=== PATIENT | female | born 1985 ===

== ENCOUNTER 2017-08-03 07:30 | Emergency (ER) | payer SELFPAY ==
[2017-08-03 07:33] VITALS: BMI 47.7
[2017-08-03 07:35] VITALS: O2SAT 97
--- NOTE | 2017-08-03 07:50 | C.PDOC ---
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 PS DIDNT SEE POTHOLE, FELL FORWARD. +AMBUL ON SCENE. PAIN WORSE W WT BEAR, MOVEMENT. NO OTHER ASSOC SX OR INJURY EXAM MILD DIST NONTOXIC OBESE HEENT ATRAUM NECK SUPPLE EXT R KNEE HEMATOMA W MILD SWELL, NO GROSS DEFORM. AROM W REPRODUC PAIN. L KNEE : NO SWELL, AROM W REPRODUC PAIN NO DEFORM; R SHOULDER AROM W REPRODUC PAIN NO DEFORM; B/L WRIST NEG SKIN INTACT NEURO INTACT REMAINDER NEG - HPI Time Seen by Provider: 08/03/17 07:39 Chief Complaint (Nursing): Lower Extremity Problem/Injury History Per: Patient History/Exam Limitations: no limitations Past Medical History Reviewed: Historical Data, Nursing Documentation, Vital Signs Vital Signs: Last Vital Signs Temp 97.8 F 08/03/17 07:32 Pulse 92 H 08/03/17 07:32 Resp 18 08/03/17 07:32 BP 127/84 08/03/17 07:32 Pulse Ox 97 08/03/17 09:45 Family History: States: No Known Family Hx - Social History Hx Alcohol Use: No Hx Substance Use: No - Immunization History Hx Tetanus Toxoid Vaccination: No Hx Influenza Vaccination: No Hx Pneumococcal Vaccination: No Review Of Systems Constitutional: Negative for: Fever Gastrointestinal: Negative for: Vomiting Musculoskeletal: Positive for: Other (knee pain) Skin: Negative for: Rash Neurological: Negative for: Weakness, Numbness, Headache, Dizziness Physical Exam - Physical Exam Appears: Non-toxic, No Acute Distress, Other (obese) Skin: Normal Color, Warm, Dry, No Rash Head: Normacephalic Eye(s): bilateral: PERRL Nose: Normal Oral Mucosa: Moist Lips: Normal Appearing Neck: Normal ROM Cardiovascular: Rhythm Regular, No Murmur Respiratory: Normal Breath Sounds, No Accessory Muscle Use Extremity: Normal ROM, No Deformity, Other (R KNEE HEMATOMA W MILD SWELL, NO GROSS DEFORM. AROM W REPRODUC PAIN. L KNEE: NO SWELL, AROM W REPRODUC PAIN NO DEFORM; R SHOULDER AROM W REPRODUC PAIN NO DEFORM; B/L WRIST NEG) Neurological/Psych: Oriented x3, Normal Speech ED Course And Treatment O2 Sat by Pulse Oximetry: 97 (RA) Pulse Ox Interpretation: Normal - Other Rad R KNEE X-Ray: Interpreted by Me (NEG) R HIP X-Ray: Interpreted by Me (NEG) Reevaluation Time: : Reassessment Condition: Improved Disposition Counseled Patient/Family Regarding: Studies Performed, Diagnosis, Need For Followup, Rx Given - Disposition Referrals: [facility] [Outside] [facility] [Outside] Disposition: HOME/ ROUTINE Disposition Time: : Condition: IMPROVED Prescriptions: Acetaminophen [Tylenol Extra Strength] 2 tab PO Q6 #30 tablet Cyclobenzaprine [Flexeril] 10 mg PO TID #15 tab Ibuprofen [Motrin] 600 mg PO Q6 #30 tab Instructions: Contusion (DC), Knee Sprain (DC) Forms: [employer] (Kinyarwanda) Print Language: [place] - Clinical Impression Clinical Impression: Knee contusion, Shoulder sprain, Wrist sprain - Scribe Statement The provider has reviewed the documentation as recorded by the Scribe (Halina Dang) All medical record entries made by the Scribe were at my direction and personally dictated by me. I have reviewed the chart and agree that the record accurately reflects my personal performance of the history, physical exam, medical decision making, and the department course for this patient. I have also personally directed, reviewed, and agree with the discharge instructions and disposition.
--- NOTE | 2017-08-03 09:21 | RAD ---
PROCEDURE: Right Knee Radiographs. HISTORY: TRAUMA COMPARISON: None. FINDINGS: BONES: Normal. No fracture. JOINTS: Normal. No osteoarthritis. JOINT EFFUSION: None. OTHER FINDINGS: None. IMPRESSION: Normal radiographs of the right knee.
--- NOTE | 2017-08-03 09:22 | RAD ---
PROCEDURE: Right Hip Radiographs. HISTORY: TRAUMA COMPARISON: None. FINDINGS: BONES: Normal. No fracture. JOINTS: Normal. SOFT TISSUES: Normal. OTHER FINDINGS: None. IMPRESSION: Normal radiographs of right hip.
[2017-08-03 09:57] VITALS: BP 93/56; PULSE 53; RESP 14; TEMP 98
== END 2017-08-03 09:58 | disposition home or self-care (01) ==
LOC: C.ER 07:30
DX: S80.01XA Contusion of right knee, initial encounter (principal); S43.401A Unspecified sprain of right shoulder joint, initial encounter; S63.501A Unspecified sprain of right wrist, initial encounter; W01.0XXA Fall on same level from slipping, tripping and stumbling without subsequent striking against object, initial encounter
CPT/HCPCS: 73502; 73562; 96372; 99284; J1885

== ENCOUNTER 2017-08-15 08:16 | Emergency (ER) | payer OTHER ==
[2017-08-15 08:16] VITALS: BMI 47.7
[2017-08-15 08:43] VITALS: O2SAT 100
--- NOTE | 2017-08-15 10:22 | C.PDOC ---
History Of Present Illness 31 y/o female from [place] presents to ED with c/o pain to right chest burning in nature 5/10 and mild headache 3/10 "for few days". 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 Patient states she thinks symptoms worsen s/p fall 1 week ago where she landed on her hand and hit chest. At ED patient c/o pain to hands, elbows and knees secondary to fall. No other complaints at this time. Chief Complaint (Nursing): Breast Problem History Per: Patient History/Exam Limitations: no limitations Onset/Duration Of Symptoms: Days Current Symptoms Are (Timing): Still Present Past Medical History Reviewed: Historical Data, Nursing Documentation, Vital Signs Vital Signs: Last Vital Signs Temp 98.1 F 08/15/17 12:14 Pulse 62 08/15/17 12:14 Resp 18 08/15/17 12:14 BP 102/71 08/15/17 12:14 Pulse Ox 100 08/15/17 12:14 - Medical History PMH: No Chronic Diseases Other Surgeries: Breast reduction, Breast implant in 2011 Family History: States: No Known Family Hx - Social History Hx Alcohol Use: No Hx Substance Use: No - Immunization History Hx Tetanus Toxoid Vaccination: No Hx Influenza Vaccination: No Hx Pneumococcal Vaccination: No Review Of Systems Constitutional: Negative for: Fever, Chills Eyes: Negative for: Vision Change Gastrointestinal: Negative for: Abdominal Pain Musculoskeletal: Positive for: Arm Pain, Leg Pain Skin: Negative for: Rash Neurological: Positive for: Headache. Negative for: Weakness, Numbness, Dizziness Physical Exam - Physical Exam Appears: Non-toxic, No Acute Distress Skin: Warm, Dry, No Rash Head: Atraumatic, Normacephalic Eye(s): bilateral: Normal Inspection Ear(s): Bilateral: Normal Oral Mucosa: Moist Throat: Normal, No Erythema, No Exudate Neck: Normal ROM, Supple Chest: Other (Scarring around right nipple. Deep scarring to left breast below nipple. Soft non tended mass above right breast) Cardiovascular: Rhythm Regular Respiratory: Normal Breath Sounds, No Rales, No Rhonchi, No Wheezing Gastrointestinal/Abdominal: Soft, No Tenderness, No Guarding, No Rebound Neurological/Psych: Oriented x3, Normal Speech, Normal Cognition ED Course And Treatment O2 Sat by Pulse Oximetry: 100 (RA) Pulse Ox Interpretation: Normal Progress Note: Tylenol and Motrin Administered. Breast US ordered to r/o implant rupture. D/w Dr. Swanson states pt need plastic surgeon if procedure is needed. D/w radiology Dr Benavides reports no evidence of damage to Silicone implant on US, reports chest wall mass noted that appears to be chronic and requests patient to have outpatient work up. Patient d/c with instructed f.u with clinic for further work up. Disposition Counseled Patient/Family Regarding: Studies Performed, Diagnosis, Need For Followup, Rx Given - Disposition Referrals: [facility] [Outside] Disposition: HOME/ ROUTINE Disposition Time: 12:02 Condition: STABLE Additional Instructions: Follow up in clinic to work up the chest wall mass. Prescriptions: Ibuprofen [Motrin] 1 tab PO TID PRN #30 tab PRN Reason: Pain Instructions: [place] Forms: Gen Discharge Inst [place], [facility] ([place] Islander) - POA Present On Arrival: None - Clinical Impression Clinical Impression: Chest wall mass - Scribe Statement The provider has reviewed the documentation as recorded by the Scribmartina Rodriguez All medical record entries made by the Scribe were at my direction and personally dictated by me. I have reviewed the chart and agree that the record accurately reflects my personal performance of the history, physical exam, medical decision making, and the department course for this patient. I have also personally directed, reviewed, and agree with the discharge instructions and disposition.
[2017-08-15 12:15] VITALS: BP 102/71; PULSE 62; RESP 18; TEMP 98.1
--- NOTE | 2017-08-15 12:15 | US ---
PROCEDURE: Diagnostic right breast ultrasound examination HISTORY: displaced sylicone implant: Palpable right breast mass status post trauma. History of left reduction mammoplasty and right breast augmentation mammoplasty. COMPARISON: None available TECHNIQUE: Ultrasound examination was performed throughout the right breast. FINDINGS: The prosthesis appears intact. There is no evidence of prosthesis rupture or silicone leak. In the superior right breast there is a solid macro lobulated mass in the 10 o'clock axis, 6 centimeter from the nipple, measuring 4.3 x 2.5 x 2.5 centimeters. This should be further evaluated with bilateral mammography. No additional abnormality is demonstrated. IMPRESSION: Macro lobulated 4.3 centimeter mass in the 10 o'clock axis right breast. Further evaluation with bilateral mammography is advised. No evident spot prosthesis rupture. No evidence of posttraumatic hematoma. BIRADS 0 Incomplete - Need additional imaging evaluation and/or prior mammograms for comparison Recommendation: Recall for additional imaging and/or comparison with prior examination, as described above. Patient will be contacted.
== END 2017-08-15 12:14 | disposition home or self-care (01) ==
LOC: C.ER 08:16
DX: R22.2 Localized swelling, mass and lump, trunk (principal)

== ENCOUNTER 2017-09-12 09:50 | Emergency (ER) | payer OTHER ==
[2017-09-12 09:50] VITALS: BMI 47.4
[2017-09-12 10:04] VITALS: RESP 18
[2017-09-12] MEDS ORDERED: Oxycodone/Acetaminophen 5/325 mg Tab PO STA (11:05)
--- NOTE | 2017-09-12 11:17 | C.PDOC ---
History Of Present Illness 31 year old female with a Hx of right breast augmentation presents to the ER with a complaint of right breast discomfort. Patient was seen on 08/15/17 for a complaint of right breast discomfort, she had an ultrasound of the right breast which indicated that the implant had not ruptured. Patient had a mammogram done a few days ago which showed that the implant had been displaced, she presents now because she continues to have discomfort. Denies chest pain, SOB, or fever. Time Seen by Provider: 09/12/17 10:50 Chief Complaint (Nursing): Breast Problem History Per: Patient History/Exam Limitations: no limitations Onset/Duration Of Symptoms: Days Current Symptoms Are (Timing): Still Present Recent travel outside of the [place]: No Past Medical History Reviewed: Historical Data, Nursing Documentation, Vital Signs Vital Signs: Last Vital Signs Temp 98.5 F 09/12/17 12:21 Pulse 64 09/12/17 12:21 Resp 18 09/12/17 12:21 BP 102/69 09/12/17 12:21 Pulse Ox 98 09/12/17 12:21 Family History: States: Unknown Family Hx - Social History Hx Alcohol Use: No Hx Substance Use: No - Immunization History Hx Tetanus Toxoid Vaccination: No Hx Influenza Vaccination: No Hx Pneumococcal Vaccination: No Review Of Systems Constitutional: Negative for: Fever, Chills Cardiovascular: Negative for: Chest Pain, Palpitations Respiratory: Negative for: Cough, Shortness of Breath Musculoskeletal: Positive for: Other (Right breast discomfort) Physical Exam - Physical Exam Appears: Non-toxic Skin: Normal Color, Warm, Dry Head: Atraumatic, Normacephalic Eye(s): bilateral: Normal Inspection Oral Mucosa: Moist Chest: Other (Scarring around right nipple. Deep scarring to left breast below nipple. Soft mildly tender mass at right breast inner quadrant; no erythema, swelling, skin changes) Cardiovascular: Rhythm Regular Respiratory: Normal Breath Sounds, No Rales, No Rhonchi, No Wheezing Gastrointestinal/Abdominal: Soft, No Tenderness Extremity: Bilateral: Atraumatic Neurological/Psych: Oriented x3, Normal Speech Gait: Steady ED Course And Treatment O2 Sat by Pulse Oximetry: 100 (Room air) Pulse Ox Interpretation: Normal Medical Decision Making Medical Decision Making: Patient with right breast pain and h.o implant Prior records reviewed, the patient was seen 08/15/17 for breast pain after fall. Patient had breast US to rule out rupture. US recommended Mammogram for evaluation of mass. Mammogram was performed 09/08/17 showing displaced implant into right upper inner quadrant of breast. Recommend plastic surgeon follow up . [id number] Spoke with Concetta Rivas's workers compensation claims assistant, who informs me DR Rivas is in surgery. She states Dr Rivas does not cover breast surgery. Attempt to contact the clinic for any plastic surgeon referral, and they are unsure at this time, but recommended the patient still follow up in clinic scheduled for 10/06 Patient was given Percocet for pain with mild relief. I instructed the patient on importance of follow up Disposition Counseled Patient/Family Regarding: Diagnosis, Need For Followup, Rx Given - Disposition Referrals: Digna Marcial MD [Staff Provider] - Disposition: HOME/ ROUTINE Disposition Time: 12:12 Condition: STABLE Additional Instructions: Take pain medicine as needed It is important that you follow up in the clinic and see plastic surgeon [place] medicamento para el dolor segn sea necesario Es importante que arben un seguimiento en la clnica y don al cirujano plstico Prescriptions: Ibuprofen [Motrin] 600 mg PO Q8 #30 tab oxyCODONE/Acetaminophen [Percocet 5/325 mg Tab] 1 tab PO Q8 PRN #20 tab PRN Reason: Pain, Severe (8-10) Instructions: Common Breast Problems Print Language: GEORGIAN - POA Present On Arrival: None - Clinical Impression Clinical Impression: Pain of breast, Displacement of breast implant - PA / AUDIT MANAGER / Resident Statement MD/DO has reviewed & agrees with the documentation as recorded. - Scribe Statement The provider has reviewed the documentation as recorded by the Scribmartina Gtoti All medical record entries made by the Williamibmartina were at my direction and personally dictated by me. I have reviewed the chart and agree that the record accurately reflects my personal performance of the history, physical exam, medical decision making, and the department course for this patient. I have also personally directed, reviewed, and agree with the discharge instructions and disposition.
[2017-09-12] MEDS ORDERED: Oxycodone/Acetaminophen 5/325 mg Tab ONE (11:26)
[2017-09-12 12:22] VITALS: BP 102/69; PULSE 64; TEMP 98.5
[2017-09-12 13:05] VITALS: O2SAT 100
== END 2017-09-12 12:29 | disposition home or self-care (01) ==
LOC: C.ER 09:50
DX: T85.42XA Displacement of breast prosthesis and implant, initial encounter (principal); Y83.8 Other surgical procedures as the cause of abnormal reaction of the patient, or of later complication, without mention of misadventure at the time of the procedure; N64.4 Mastodynia

== ENCOUNTER 2018-04-24 13:15 | Outpatient (CLI) | payer OTHER | END 2018-04-24 13:16 | disposition home or self-care (01) | LOC: C.LAB 13:15 ==